=== PATIENT | female | born 1950 | race Asian ===

== ENCOUNTER → 2018-06-03 | Outpatient (CLI) | payer OTHER ==
[~2018-06-03] MED LIST: ASCO10004 PO; ASPI-496 PO; ATOR10TA PO; CHRO400T3 PO; FAMO40TA4 PO; HYDR-3240 PO; LISI1TAB3 PO; MULT-516 PO; OMEG500C PO; OMEP-110 PO; PHEN37.53 PO; SITA1TAB PO; VITA1TAB19 PO; lipozene PO
== END | disposition home or self-care (01) ==
LOC: STAR 10:36
PROVIDERS: ATTEND Orthopaedic Surgery
DX: Z01.818 Encounter for other preprocedural examination (principal); I45.10 Unspecified right bundle-branch block; M18.12 Unilateral primary osteoarthritis of first carpometacarpal joint, left hand
CPT/HCPCS: 93005

== ENCOUNTER 2018-06-08 12:23 | Day surgery (SDC) | payer OTHER ==
[~2018-06-08] VITALS: Ht 160 cm; Wt 77.0 kg
[~2018-06-08 12:23] MED LIST changes: -OMEP-110 PO
[2018-06-08] MEDS ORDERED: FENTANYL PF 100 MCG/2ML ONE ×3 (12:43→14:38)
[2018-06-08] MEDS ORDERED: MIDAZOLAM 1 MG/ML, 2ML ONE (12:43)
[2018-06-08] MEDS ORDERED: BACITRACIN 50,000 UNIT ONE (12:44)
[2018-06-08] MEDS ORDERED: BUPIVACAINE/PF-EPI 0.5% 1:200K ONE (12:44)
[2018-06-08] MEDS ORDERED: LACTATED RINGERS 1,000 ML IV SCH (12:49)
[2018-06-08] MEDS ORDERED: OMEP-110 PO (12:49)
[2018-06-08 12:50] VITALS: BP 166/92
[2018-06-08] MEDS ORDERED: ACETAMINOPHEN 325 MG TABLET PO PRN (13:00)
[2018-06-08] MEDS ORDERED: hydrALAzine 20 MG/ML, 1ML IV PRN (13:00)
[2018-06-08] MEDS ORDERED: METOCLOPRAMIDE 5 MG/ML, 2ML IV PRN (13:00)
[2018-06-08] MEDS ORDERED: OXYcodone 5 MG/5 ML ORAL.SOL UDC PO PRN (13:00)
[2018-06-08] MEDS ORDERED: LORazepam 2 MG/ML, 1ML IVPush PRN (13:00)
[2018-06-08] MEDS ORDERED: LABETALOL 5MG/ML, 20ML IV PRN (13:00)
[2018-06-08] MEDS ORDERED: CEFAZOLIN 1,000 MG ONE (13:02)
[2018-06-08] MEDS ORDERED: ONDANSETRON 2MG/ML, 2ML ONE (13:02)
[2018-06-08] MEDS ORDERED: PROPOFOL 10 MG/ML, 20ML ONE (13:02)
[2018-06-08] MEDS ORDERED: OXYcodone 5 MG/5 ML ORAL.SOL UDC ONE (14:37)
[2018-06-08] MEDS ORDERED: ACETAMINOPHEN 650 MG/20.3 ML UDC ONE (14:38)
[2018-06-08] MEDS: FENTANYL PF 100 MCG/2ML IV PRN ×3 (14:40→15:05)
== END 2018-06-08 16:55 | disposition home or self-care (01) ==
LOC: OUT 12:23
PROVIDERS: ATTEND Orthopaedic Surgery
DX: M18.12 Unilateral primary osteoarthritis of first carpometacarpal joint, left hand (principal); M65.321 Trigger finger, right index finger; J45.909 Unspecified asthma, uncomplicated; E11.9 Type 2 diabetes mellitus without complications; K21.9 Gastro-esophageal reflux disease without esophagitis; I10 Essential (primary) hypertension; E78.5 Hyperlipidemia, unspecified; Z87.891 Personal history of nicotine dependence; Z79.84 Long term (current) use of oral hypoglycemic drugs
CPT/HCPCS: 25310; 25447; 26055; 82962; J0690; J2250; J2405; J2704; J3010; J7120